=== PATIENT | male | born 1980 | race Caucasian/White ===

== ENCOUNTER 2025-09-01 10:32 | Emergency (ER) | payer BC, OTHER ==
[2025-09-01 10:50] LABS: BASOPHILS ABSOLUTE AUTO 0.1 K/mm3 (0.0-0.2); BASOPHILS PERCENT AUTO 0.6 % (0.0-1.0); EOSINOPHILS ABSOLUTE AUTO 0.1 K/mm3 (0.0-0.4); EOSINOPHILS PERCENT AUTO 0.6 % (0.0-6.0); IMMATURE GRAN ABSOLUTE AUTO 0.03 K/mm3 (0.00-0.05); IMMATURE GRAN PERCENT AUTO 0.2 % (0.0-0.4); LYMPHOCYTES ABSOLUTE AUTO 2.2 K/mm3 (1.0-4.8); LYMPHOCYTES PERCENT AUTO 17.3 % (24.0-44.0); MEAN PLATELET VOLUME 9.5 fl (9.4-12.4); MONOCYTES ABSOLUTE AUTO 0.6 K/mm3 (0.0-0.8); MONOCYTES PERCENT AUTO 5.1 % (0.0-8.0); NEUTROPHILS ABSOLUTE AUTO 9.5 K/mm3 (1.8-7.7); NEUTROPHILS PERCENT AUTO 76.2 % (41.0-71.0); NRBC ABSOLUTE 0.00 (0.00-0.02); NRBC PERCENT 0.0 % (0.0-0.2); PLATELET COUNT,PLT 377 K/mm3 (150-400); RED BLOOD CELL COUNT 4.83 M/mm3 (4.52-5.90); WHITE BLOOD CELL COUNT,WBC 12.46 K/mm3 (3.9-11.3)
[2025-09-01] MEDS: Ondansetron 4 MG/2 ML SDV IVPUSH ONE (11:06)
[2025-09-01] MEDS: Heparin Sodium 5,000 Units/ML Vial IVPUSH ONE (11:06)
[2025-09-01] MEDS ORDERED: Naloxone 0.4 MG/ML SDV IVPUSH PRN (11:12)
[2025-09-01] MEDS: Sodium Chloride 0.9% 10 ML Syringe FLUSH PRN (11:16)
[2025-09-01 11:18] LABS: A/G RATIO 1.0 (1-2); ALANINE AMINOTRANSFERASE,ALT 29.0 U/L (16-63); ASPARTATE AMNIOTRANSFERASE,AST 18.0 U/L (15-37); BILIRUBIN TOTAL 1.2 mg/dL (0.2-1.0); BLOOD UREA NITROGEN,BUN 27.0 mg/dL (7-18); CARBON DIOXIDE,CO2 19.0 mEq/L (21-32); CHLORIDE,CL 103.0 mEq/L (98-107); CREATININE 1.4 mg/dL (0.7-1.3); EST CRCL DRUG DOSING (CG) 67.35 mL/min; ESTIMATED GFR 62.0 mL/min (>60); GLUCOSE RANDOM 151.0 mg/dL (70-99); POTASSIUM,K 3.4 mEq/L (3.5-5.1); PROTEIN TOTAL,TP 8.1 g/dl (6.4-8.2); SODIUM,NA 139.0 mEq/L (136-145); TROPONIN I HIGH SENSITIVITY 66.0 pg/mL (<=76)
== END 2025-09-01 11:43 ==
LOC: JD.ED 10:32
DX: I21.3 ST elevation (STEMI) myocardial infarction of unspecified site (principal); I47.20 Ventricular tachycardia, unspecified; I25.10 Atherosclerotic heart disease of native coronary artery without angina pectoris; I10 Essential (primary) hypertension; E78.00 Pure hypercholesterolemia, unspecified; I25.2 Old myocardial infarction; K21.9 Gastro-esophageal reflux disease without esophagitis; Z95.5 Presence of coronary angioplasty implant and graft; Z79.82 Long term (current) use of aspirin; Z79.899 Other long term (current) drug therapy; Z88.8 Allergy status to other drugs, medicaments and biological substances
CPT/HCPCS: 36415; 71045; 80053; 83605; 83735; 84484; 85025; 93005; 96365; 96375; 99291; A9270; J1644; J2305; J2405; J3101; 93010; J1171